=== PATIENT | male | born 1990 | race Caucasian/White ===

== ENCOUNTER 2019-07-04 18:33 | Emergency (ER) | payer BC, SELFPAY ==
[2019-07-04 18:36] VITALS: BP 136/81; PULSE 84; RESP 14; TEMP 37.2; O2SAT 97
--- NOTE | 2019-07-04 19:17 | ED.GENADUL_ITS ---
Discharge Plan Disposition Patient Disposition: HOME Condition: Stable Discharge Details Chief Complaint: Laceration Clinical Impression: Laceration Primary Care Provider: Ed Norman ED Provider: Amanda Reyes Home Meds and New Rx's Prescriptions: No Action No Known Home Meds RF: 0 Discharge Instructions Instructions: Laceration (ED) Additional Instructions: Keep initial dressing on for the next 24 to 48 hours then you may remove and begin your wound care. Wash gently with soap and water once or twice daily. Pat dry completely after washing and apply a small amount of antibiotic ointment to the wound. Keep dressed with Band-Aids or gauze. Observe for any signs of infection as discussed specifically redness, swelling, pain or drainage from the wound. Suture removal in the next 10-14 days. Return for any worsening, concerns or alarming symptoms sooner if needed Medical Decision Making 28-year-old patient presents to the emergency room for laceration to his right second digit which he sustained prior to arrival. Patient's tetanus is up-to-date. Patient has a linear laceration to the fat pad of the second digit. Nothing to indicate ligamentous injury. Distal neurovascularly intact with normal cap refill. Sensation preserved throughout the digit. Digital block for patient's comfort with 0.5% bupivacaine without epinephrine with 1% lidocaine, 4 cc used, patient tolerated without difficulty. Wound cleaned and extensively irrigated. 8 4-0 Prolene sutures. Wound edges well approximated. Patient tolerated procedure without any difficulty. Wound care discussed. Signs of infection discussed. Suture removal discussed. Patient agrees with plan of care. The patient was stable and requested d ischarge. Prior to discharge, my usual and customary return precautions were reviewed with the patient - this included follow-up instructions and reasons to return to the Emergency Department if conditions worsens, does not improve as expected, or other new concerns arise. HPI General Date/Time Provider Initiated Documentation: 07/04/19 18:55 . HPI Narrative: This is a 28-year-old patient presenting to the emergency room this evening for a right second finger laceration to the fat pad which was sustained approximately 1-1/2 hours prior to arrival. Patient was breaking ice off of an auger blade and the ice broke his finger accidentally caught the blade and lacerated the fat pad of his digit with his glove on. Patient's tetanus is up-to-date. Patient denies numbness, tingling or weakness. Full range of motion maintained of the finger. Patient has no concern of bony injury. Patient denies any other sites of pain or concerns. Bleeding controlled with pressure. Related Data Home Medications Medication Instructions Recorded Confirmed Unknown [No Known Home Meds] 07/04/19 07/04/19 Allergies Allergy/AdvReac Type Severity Reaction Status Date / Time No Known Allergies Allergy Unverified 07/04/19 18:44 General Stated Complaint: Laceration DHAVAL: 4 Review of Systems All systems reviewed & are unremarkable except as noted in HPI and below Musculoskeletal Musculoskeletal: Denies deformity, Denies limited range of motion, Denies numbness and Denies tingling Integumentary/Breasts Skin/Breast: Reports wounds Neurologic Neurologic: Denies numbness, Denies sensory deficit and Denies tingling PFSH Social History Smoking/Tobacco Use Status: Never Alcohol Intake: current Alcohol Intake frequency: a few times a month Drug use: Never Substance use type: does not use Do you feel safe at home: Yes Do you feel safe in your relationship?: Yes Exam Narrative Exam Narrative: CONST: Healthy appearing patient, in no acute distress. Well hydrated. Alert and oriented. MUSCULOSKELETAL: Normal Gait. FROM of all extremities. Right second digit with a laceration to the fat pad approximately 2 cm, linear. No bony pain with palpation. Flexion and extension intact, nothing to indicate tendon injury. Bleeding controlled with pressure. Sensation intact on the medial and lateral aspects of the digit distally. Cap refill normal SKIN: Normal. Dry. No rashes. Wound as described above NEURO: Alert and awake. Speech clear. PSYCH: Normal affect. Cooperative. Course Vital Signs Vital signs: Vital Signs Temperature 37.2 C 07/04/19 18:36 Pulse 84 07/04/19 18:36 Respiratory Rate 14 07/04/19 18:36 Blood Pressure 136/81 07/04/19 18:36 Pulse Oximetry 97 07/04/19 18:36 Temperature 37.2 C 07/04/19 18:36 Temperature Source Skin 07/04/19 18:36 Pulse 84 07/04/19 18:36 Respiratory Rate 14 07/04/19 18:36 Respiratory Effort 07/04/19 18:44 Blood Pressure 136/81 07/04/19 18:36 Blood Pressure Position Sitting 07/04/19 18:36 Pulse Oximetry 97 07/04/19 18:36 Oxygen Delivery Method Room Air 07/04/19 18:36 Oxygen Flow Rate 0 07/04/19 18:36 Pain Level 2 07/04/19 18:36 Procedures Laceration Laceration 1: Site: hand Side (If applicable): right Size (cm): 2 Description: linear Depth: simple, single layer Local Anesthetic: Bupivicaine 0.5% Amount of anesthesia used (mL): 4 Pre-repair: wound explored, irrigated extensively and deep structures intact Size (cm): 4-0 (prolene) Number of sutures: 8 Technique: simple, interrupted
[2019-07-04] MEDS: Povidone-Iodine Soln. 118 ML BTL (20:01)
[2019-07-04] MEDS: Bupivacaine 0.5% Pres-Free 30 ML VIAL (20:01)
== END 2019-07-04 20:40 | disposition home or self-care (01) ==
PROVIDERS: Emergency Provider Physician Assistant; PCP Physician Assistant
DX: S61.210A Laceration without foreign body of right index finger without damage to nail, initial encounter (principal); W26.8XXA Contact with other sharp object(s), not elsewhere classified, initial encounter
CPT/HCPCS: 12001

== ENCOUNTER 2022-05-30 12:37 | Emergency (ER) | payer BC, SELFPAY ==
[2022-05-30 12:41] VITALS: BP 132/67; PULSE 69; RESP 18; TEMP 36.9; O2SAT 98
--- OUTSIDE RECORDS SUMMARY | 2022-05-30 12:49 | XMS_ITS ---
:1990 Author Organization [facility] Address [address] [place] [address] Care Team Providers Name Role Phone Lazarus Norman Unavailable Unavailable PROBLEMS Unknown Problems ALLERGIES No Known Allergies ENCOUNTERS Encounter Location Date Diagnosis [address], [place] [address], [place], [place], [place] [address] R53.83 ; Dysuria R30.0 ; Periumbilical ab dominal pain R10.33 and Acute bacterial prosta titis N41.[address] [place], [place] [address], [place], [place] R30.0 ; [place] [address] -Immunization Z2 3 and Benign essential microscopic felix turia R31.[address], [place] [address], [place] [address] distal pole of n avicular [scaphoid] bone of right wrist, initial e ncounter for closed fract ure S62.014A and Non displaced fracture of midd le third of navicular [scaph oid] bone of right wrist, initial encounter for cl osed fracture S62.[address], [place] [address], [place] [address], [place], [place] [address] distal radius S5 2.501A ; Nondisplaced fra cture of middle third of navicular [scaphoid] bone of right wrist, initial e ncounter for closed fract ure S62.024A ; -Immu nization Z23 and Nondispl aced fracture of dist al pole of navicular [scaph oid] bone of right wrist, initial encounter for cl osed fracture S62.[address], [place] [address] middle third of navicular [scaphoid] bone of right wrist, initial e ncounter for closed fract ure S62.024A ; Nondi splaced fracture of dist al pole of navicular [scaph oid] bone of right wrist, initial encounter for cl osed fracture S62.014 A and Closed fracture of right distal radius S5 2.501A [address], [place] [address], [place], [place] [address] distal radius S5 2.501A [address], [place], [place] [address] distal radius S5 2.501A [address], [place], [place] [address] middle third of navicular [scaphoid] bone of right wrist, initial e ncounter for closed fract ure S62.024A and Yvonne sed fracture of righ t distal radius S52.501A [address], [place], [place] [address] distal radius S5 2.501A ; -Concussion with out loss of consciousness S0 6.0X0D ; Nondisplaced fra cture of distal pole of n avicular [scaphoid] bone of right wrist, initial e ncounter for closed fract ure S62.014A and Non displaced fracture of midd le third of navicular [scaph oid] bone of right wrist, initial encounter for cl osed fracture S62.024 A IMMUNIZATIONS Vaccine Route Administration Date Status Pfizer SARS-CoV2 Bivalent Booster IM Intramuscular May 24, 2022 Administered INFLUENZA ADULT SINGLE DOSE IM Intramuscular May 24, 2022 Adm inistered INFLUENZA ADULT SINGLE DOSE IM Intramuscular Mar 10, 2019 Adm inistered TD ADULT IM Intramuscular Mar 10, 2019 Administered SOCIAL HISTORY Qualifiers Date REASON FOR REFERRAL FUNCTIONAL STATUS PLAN OF CARE Activity Details Follow Up 1 week ABP Urine CX Reason: Pending Test BACTERIAL CULTURE, URINE, RO UTINE - QUEST VITAL SIGNS Temperature 98.1 degrees Fahrenheit 2022-05-24 Weight 157 lbs 2022-05-28 Weight 162 lbs 2022-05-24 Weight 160 lbs 2019-05-07 Weight 158 lbs 2019-03-10 Weight 155 lbs 2019-01-21 Weight 156.4 lbs 2018-12-22 Height 68 in 2022-05-28 BMI 23.87 kg/m2 2022-05-28 Oximetry 96 % 2022-05-24 Blood pressure systolic 124 mm Hg 2022-05-28 Blood pressure diastolic 80 mm Hg 2022-05-28 MEDICATIONS Medication Instructions Dosage Frequency Start End Date Duration Stat us Date BACTRIM DS Orally every 12 1 tablet 12h 24 May, day(s) Ac tive 800-160 MG hrs 2022 2022 PROCEDURES Procedure Date Ordered Result Body Site ZDME: WRIST SPLINT 2018-12-22 N/A ZDME: THUMB SPICA WRIST SPLINT 2019-03-10 N/A COMPREHEN METABOLIC PANEL QW May 28, 2022 INFLUENZA ADULT SINGLE DOSE May 24, 2022 VENIPUNCT, ROUTINE* May 28, 2022 APPLY HAND/WRIST CAST Dec 22, 2018 [place] ADULT FIBERGLASS Dec 22, 2018 URINE-NO MICRO May 24, 2022 URINE-NO MICRO May 24, 2022 Pfizer SARS-CoV2 Bivalent Booster May 24, 2022 TD Mar 10, 2019 URINE-NO MICRO May 24, 2022 IMMUNIZATION ADMIN Mar 10, 2019 [place] ADULT FIBERGLASS Jan 21, 2019 IMMUNIZATION ADMIN May 24, 2022 WRIST SPLINT Dec 22, 2018 WRIST SPLINT THUMB SPICA Mar 10, 2019 URINE-NO MICRO May 28, 2022 INFLUENZA ADULT SINGLE DOSE Mar 10, 2019 APPLY HAND/WRIST CAST Jan 21, 2019 ADM SARSCOV2 30MCG/0.3ML BIVALENT BOOSTER May 24, 2022 RESULTS Name Result Date Reference Range C REACTIVE PROTEIN 2022-05-28 C-REACTIVE PROTEIN 20.0 <10.0 Urinalysis, routine (In-house Only) 2022-05-28 Urine-Color light yellow Leuk Esterase 3+ Nitrite, Urine + Urobilinogen,Semi-Qn neg Protein +- pH 7.5 Occult Blood 3+ Specific [place] 1.005 Ketones neg Bilirubin neg Glucose neg Appearance cloudy Microscopic Examination Microscopic Examination Urinalysis Gross Exam COMPREHENSIVE METABOLIC PANEL 2022-05-28 Sodium 143 128 - 145 Potassium 3.9 3.6 - 5.1 CO2 32 18 - 33 Chloride 101 98 - 108 Glucose, Serum 98 73 - 118 Calcium 9.9 8.0 - 10.3 BUN 11 7 - 22 Creatinine 1.1 0.6 - 1.2 Alkaline Phosphatase 63 38 - 150 ALT 9* 10 - 47 AST 19 Total Bilirubin USE NBIL 0.7 0.2 - 1 .6 Albumin 4.2 3.3 - 5.5 Total Protein 7.6 6.4 - 8.1 GFR, calculated >60 ALBUMIN/GLOBULIN RATIO Fasting? no TOTAL BILIRUBIN Anion Gap BLOOD UREA NITROGEN HN ANION GAP A/G Ratio Calculated Calcium BLOOD UREA NITROGEN GLUCOSE UREA NITROGEN (BUN) CREATININE eGFR NON-AFR. GU[place]EMALAN eGFR BUN/CREATININE RATIO GLOBULIN EGFR PSA, Diagnostic 2022-05-28 PROSTATE SPECIFIC ANTIGEN 12.7 <=2.5 D-DIMER 2022-05-28 D-DIMER QUANTITATIVE <150 <=230 HEMAGRAM & DIFF 2022-05-28 WHITE BLOOD CELL COUNT (WBC) 12.37 4.0 0-10.40 RED BLOOD CELL COUNT (RBC) 4.87 4.36- 5.78 HEMOGLOBIN (HGB) 13.7 13.8-17.3 HEMATOCRIT (HCT) 41.6 39.5-50.2 MEAN CORPUSCULAR VOLUME (MCV) 85 81 -95 MEAN CORPUSCULAR HEMOGLOBIN (MCH) 28.1 27.6-33.0 MEAN CORPUSCULAR HEMOGLOBIN CONC (MCHC) 32.9 32.8-36.4 RDW-CV 12.9 <14.2 RDW-SD 39.8 <46.0 PLATELET COUNT (PLTC) 285 141-377 MEAN PLATELET VOLUME (MPV) 10.3 9.5-1 2.7 LYMPHOCYTES RELATIVE PERCENT (ALYMP) 14.8 MONOCYTES RELATIVE BY AUTOMATED COUNT (AMONO) 8.7 EOSINOPHILS RELATIVE BY AUTOMATED COUNT 3.0 BASOPHILS RELATIVE PERCENT BY AUTOMATED COUNT 0.6 MONOCYTES ABSOLUTE BY AUTOMATED COUNT 1.08 0.10-0.80 EOSINOPHILS ABSOLUTE COUNT (AAEOS) 0.37 0.03-0.61 BASOPHILS ABSOLUTE COUNT BY AUTO COUNT (ABAS) 0.07 0.01-0.11 Urinalysis, routine (In-house Only) 2022-05-24 Urine-Color light yellow Leuk Esterase neg Nitrite, Urine neg Urobilinogen,Semi-Qn neg Protein neg pH 7.0 Occult Blood 2+ Specific [place] 1.005 Ketones neg Bilirubin neg Glucose neg Appearance clear Microscopic Examination Microscopic Examination Urinalysis Gross Exam CHLAMYDIA/GC AMPLIFIED RNA, URINE 2022-05-24 CHLAMYDIA TRACHOMATIS RNA, TMA, UROGENITAL NOT DETECTED NOT DETECTED NEISSERIA GONORRHOEAE RNA, TMA, UROGENITAL NOT DETECTED NOT DETECTED COMMENT CT Scan : [facility] Wrist 3 or more Views 2019-01-20 [facility] : Wrist 3 or more Views 2019-01-07 X [facility] : Wrist 3 or more Views 2018-12-30 [facility] : Wrist 3 or more Views 2018-12-22 REASON FOR VISIT Follow Up, ongoing urinary symptoms, URI symptoms (negative covid test), ongoing sx, pain & discomfort before/after urination /ss, pain & discomfort before/after urination /ss, pain & discomfort before/after urination, COVID-19 - needs to be tested?, RIGHT wrist f/u-dl, Speak w/ MS, Work letter , f/u wrist , f/u wrist-dl, Influenza Vaccine, f/u wrist after repeat x-ray-dl, due for repeat x-ray and OV, NEW SYMPTOMS, repeat XR, concussion, CALL OUT CLERK concussion/fracture-dl Insurance Providers [facility] Patient Patient Patient Patient Patient Subscriber Subscriber Subscriber Group Insurance Plan Plan Plan Plan ID Relationship Address Phone Name Date of ID Name Date of No Type Insurance Insurance Insurance Coverage to Subscriber Address Phone Name Dates Jaya Uribe [phone] Jaya Cross self Peter [id number] [place] [address] [place] [id number] [place] [address]
--- NOTE | 2022-05-30 13:13 | ED.GENADUL_ITS ---
Discharge Plan Disposition Patient Disposition: Home Condition: Improving Discharge Details Clinical Impression: Alteration in vision, Paresthesia Primary Care Provider: Ed Norman ED Provider: Alo Herrmann Home Meds and New Rx's Prescriptions: No Action No Known Home Meds Discharge Instructions Instructions: Paresthesia (ED), Blurred Vision (ED) Additional Instructions: Please continue to monitor your symptoms and if they return or you have any significant worsening of your symptoms especially if these are persistent return immediately to the emergency department for reassessment. Otherwise follow-up with your primary care provider as previously scheduled for continued monitoring and care of your prostatitis. At this time I do not feel that this was a medication reaction but continue to monitor for further reactions after you take additional doses of your antibiotic. Referrals: Ed Norman [Primary Care Provider] - (As needed for reassessment) Discharge Data Discharge Date/Time-TO BE ENTERED AT DEPARTURE: 05/30/22 15:27 Medical Decision Making Patient presenting to the emergency department for chief complaint of double vision and facial numbness. This happened approximately 1 hour prior to arrival with symptoms starting to resolve. Patient recently was diagnosed with prostatitis and has been started on Bactrim which today he took his third dose approximately 3 hours prior to any of the symptoms that occurred. Patient now only states mild palatine numbness otherwise is asymptomatic. Cranial nerve exam is unremarkable, visual beltrán intact, exam is otherwise intact with no focal findings, normal gait. We will plan on checking labs and a CTA imaging. While patient is at extremely low risk for CVA this is considered, also consideration given patient's occupation would be Lyme or tickborne illness, electrolyte abnormality, TIA. Significant other did state that patient had dry cough yesterday evening so we will also check COVID status but I would feel this would be extremely atypical for presentation. Given that patient symptoms are resolving independent of any treatments we will just continue to monitor at this time. Review of labs show mild leukocytosis with noted elevation of neutrophils and monocytes but I feel this is all secondary to prostatitis. CMP is completely and unremarkable. UA unremarkable. Patient negative for COVID. CT imaging unremarkable for emergent findings. Patient continued to have full resolution of symptoms. Patient still pending tickborne panel but will discharge with close monitoring along with return and follow-up precautions. After discussion of diagnosis and plan of care patient has no further needs, questions, or concerns and states clear understanding to return to the emergency department for any worsening symptoms. This documentation was generated using [employer] dictation system, please disregard any oddities of phrase or misspellings. Imaging Data Radiologic Study: Attestation: I personally reviewed and interpreted this imaging study as follows: Imaging: CT Scan Radiologist's impression: Exam(s) CT BRAIN NECK CTA EXAM: CT BRAIN NECK CTA CLINICAL HISTORY: Facial numbness, blurry vision. TECHNIQUE: Imaging Protocol: Axial CT angiography was performed with multi- slice acquisition and multi-planar and 3D reconstructions. CONTRAST MATERIAL: Intravenous: Omnipaque 350 Contrast volume: 100 cc COMPARISON: No exams were available for comparison FINDINGS: CT Head W/O and W contrast: Ventricles and Extra axial spaces: Normal in size and morphology for the patient's age. Hemorrhage: None. Cerebral parenchyma: Normal. Midline shift: None. Brainstem/Cerebellum: Normal. Calvarium: Normal. Visualized Paranasal sinuses/Mastoids: Clear. Soft Tissues: Unremarkable. Enhancement: Normal. CTA Brain W: Internal Carotid Arteries: Petrous: Normal. Cavernous: Normal. Cerebral: Normal. Middle Cerebral Arteries: Right: No aneurysm, occlusion or significant stenosis. Left: No aneurysm, occlusion or significant stenosis. Anterior Cerebral Arteries: Right: No aneurysm, occlusion or significant stenosis. Left: No aneurysm, occlusion or significant stenosis. Posterior cerebral Arteries: Right: No aneurysm, occlusion or significant stenosis. Left: No aneurysm, occlusion or significant stenosis. Vertebral Arteries: Right: No aneurysm, occlusion or significant stenosis. Left: No aneurysm, occlusion or significant stenosis. Basilar Artery: No aneurysm, occlusion or significant stenosis. CTA Neck W: Common Carotid: Right: No aneurysm, occlusion or significant stenosis. Left: No aneurysm, occlusion or significant stenosis. External Carotid: Right: No aneurysm, occlusion or significant stenosis. Left: No aneurysm, occlusion or significant stenosis. Internal Carotid: Right: No aneurysm, occlusion or significant stenosis. Left: No aneurysm, occlusion or significant stenosis. Vertebral Artery: Right: No aneurysm, occlusion or significant stenosis. Left: No aneurysm, occlusion or significant stenosis. Lung Apices: Normal. Bones: Normal. Soft Tissues: Normal. IMPRESSION: 1. Normal CTA examination of the [place] of [place]. 2. Unremarkable CT Head. 3. Normal CTA examination of the neck. Lab Data Lab results reviewed: Yes I reviewed the patient's lab results. HPI General Mode of arrival: ambulatory . Date/Time Provider Initiated Documentation: 05/30/22 12:38 . Limitations to Documentation: no limitations . Information obtained by: patient, family and RN notes reviewed . History of Present Illness 31 year old M presents to the emergency department with the chief complaint of Change in vision, Quality is described as other (Denies pain or discomfort), Patient started experiencing this hour(s) (2) and it has been now resolved. No relieving factors improve symptom(s), No exacerbating factors reported . Patient notes no other symptoms.. Patient did receive the following treatments prior to arrival, none Related Data Home Medications Medication Instructions Recorded Confirmed Unknown [No Known Home Meds] 07/04/19 07/04/19 Allergies Allergy/AdvReac Type Severity Reaction Status Date / Time No Known Allergies Allergy Unverified 07/04/19 18:44 General Stated Complaint: GenMedical DHAVAL: 3 Review of Systems Constitutional Constitutional: Reports chills, Reports fever(s) and Reports headache(s) Eyes Eyes: Reports blurry vision ENT Ears, Nose, Mouth, and Throat: Denies facial pain and Reports headache(s) Cardiovascular Cardiovascular: Denies chest pain and Denies dyspnea Respiratory Respiratory: Reports cough and Denies dyspnea Musculoskeletal Musculoskeletal: Reports numbness Neurologic Neurologic: Reports headache(s) and Reports numbness PFSH All Active Problems (Updated 05/30/22 @ 15:23 by Alo Herrmann NP) Alteration in vision (Acute) Paresthesia (Acute) Social History Smoking/Tobacco Use Status: Never Smoking risk assessment performed?: Yes Alcohol Intake: current Alcohol Intake frequency: a few times a month Drug use: Never Substance use type: does not use Do you feel safe at home: Yes Do you feel safe in your relationship?: Yes Exam Const General: cooperative, healthy appearing, no acute distress and well groomed Orientation: alert, awake and oriented x3 HENMT Head: normal to inspection Ears: hearing grossly normal bilaterally and TM's normal bilaterally Mouth: oral mucosae normal and moist mucous membranes Throat: posterior oropharynx normal Eyes Visual Beltrán: normal visual beltrán by confrontation Alignment and Position: alignment normal Periorbital: periorbital findings normal Eyelids: eyelids normal Conjunctivae: conjunctivae normal Sclera: sclerae normal Cornea: corneas normal Pupils: PERRL EOM: EOM intact bilaterally Neck Neck: normal visual inspection, full ROM and no meningeal signs Resp Effort & Inspection: normal respiratory effort and able to speak in complete sentences Auscultation: clear to auscultation bilaterally Cardio Rate: regular rate Rhythm: regular rhythm Heart Sounds: S1 normal and S2 normal Neuro General: patient alert, patient awake, patient oriented x3, gait normal, tone normal, moves all extremities, CN's II-XI intact bilaterally and not confused Cognition: normal cognition Speech: speech normal Motor: muscle tone normal throughout, strength 5/5 throughout, no pronator drift, no movement abnormalities noted and no fasciculations Sensory Exam: no sensory deficits noted Coordination: Does not sway with eyes open, rapid alternating movement UE normal and rapid alternating movement LE normal Course Vital Signs Vital signs: Vital Signs Temperature 36.9 C 05/30/22 12:41 Pulse 69 05/30/22 12:41 Respiratory Rate 18 05/30/22 12:41 Blood Pressure 132/67 05/30/22 12:41 Pulse Oximetry 98 05/30/22 12:41 Temperature 36.9 C 05/30/22 12:41 Temperature Source Tympanic 05/30/22 12:41 Pulse 69 05/30/22 12:41 Respiratory Rate 18 05/30/22 12:41 Respiratory Effort 05/30/22 12:49 Respiratory Depth Normal 05/30/22 12:49 Respiratory Pattern Normal 05/30/22 12:49 Blood Pressure 132/67 05/30/22 12:41 Blood Pressure Position Supine 05/30/22 12:41 Pulse Oximetry 98 05/30/22 12:41 Oxygen Delivery Method Room Air 05/30/22 12:41 Oxygen Flow Rate 0 05/30/22 12:41 Pain Level 2 05/30/22 12:41 PAWSS Have you Been Recently Intoxicated or Drunk Within the Last 30 days?: No Have you Ever Experienced Previous Episodes of Alcohol Withdrawal?: No Have you ever Experienced Withdrawal Seizures?: No Have you ever Experienced Delirium Tremens(DT)s?: No Have you ever undergone Alcohol Rehabilitation Treatment (i.e, inpt ot outpatient treatment programs)?: No Have you ever Experienced Blackouts?: No Have you ever Combined Alcohol with other Downers within the last 90 days?: No Have you ever Combined Alcohol with any other Substance of Abuse during the last 90 days?: No Positive Blood Alcohol level on Presentation? [PCS.BAL]: No Evidence of Increased Autonomic Activity (i.e. HR>120, tremor, sweating, agitation, nausea)?: No Result: 0
--- NOTE | 2022-05-30 13:15 | DI.CT_ITS ---
Exam(s) CT BRAIN NECK CTA EXAM: CT BRAIN NECK CTA CLINICAL HISTORY: Facial numbness, blurry vision. TECHNIQUE: Imaging Protocol: Axial CT angiography was performed with multi-slice acquisition and mu lti-planar and 3D reconstructions. CONTRAST MATERIAL: Intravenous: Omnipaque 350 Contrast volume: 100 cc COMPARISON: No exams were available for comparison FINDINGS: CT Head W/O and W contrast: Ventricles and Extra axial spaces: Normal in size and morphology for the patient's age. Hemorrhage: None. Cerebral parenchyma: Normal. Midline shift: None. Brainstem/Cerebellum: Normal. Calvarium: Normal. Visualized Paranasal sinuses/Mastoids: Clear. Soft Tissues: Unremarkable. Enhancement: Normal. CTA Brain W: Internal Carotid Arteries: Petrous: Normal. Cavernous: Normal. Cerebral: Normal. Middle Cerebral Arteries: Right: No aneurysm, occlusion or significant stenosis. Left: No aneurysm, occlusion or significant stenosis. Anterior Cerebral Arteries: Right: No aneurysm, occlusion or significant stenosis. Left: No aneurysm, occlusion or significant stenosis. Posterior cerebral Arteries: Right: No aneurysm, occlusion or significant stenosis. Left: No aneurysm, occlusion or significant stenosis. Vertebral Arteries: Right: No aneurysm, occlusion or significant stenosis. Left: No aneurysm, occlusion or significant stenosis. Basilar Artery: No aneurysm, occlusion or significant stenosis. CTA Neck W: Common Carotid: Right: No aneurysm, occlusion or significant stenosis. Left: No aneurysm, occlusion or significant stenosis. External Carotid: Right: No aneurysm, occlusion or significant stenosis. Left: No aneurysm, occlusion or significant stenosis. Internal Carotid: Right: No aneurysm, occlusion or significant stenosis. Left: No aneurysm, occlusion or significant stenosis. Vertebral Artery: Right: No aneurysm, occlusion or significant stenosis. Left: No aneurysm, occlusion or significant stenosis. Lung Apices: Normal. Bones: Normal. Soft Tissues: Normal. IMPRESSION: 1. Normal CTA examination of the [place]. 2. Unremarkable CT Head. 3. Normal CTA examination of the neck. RADIATION DOSE DELIVERED: 1,990.75mGy.cm Total DLP DATA REPOSITORY: All CT scans at this facility are submitted to the National Radiology Data Registry (NRDR) Dose Index Registry (DIR) with the [employer] ([employer]). RADIATION OPTIMIZATION: All CT scans at this facility use at least one of these dose optimization te chniques: automated exposure control; mA and/or kV adjustment per patient size (includes targeted exa ms where dose is matched to clinical indication); or iterative reconstruction.
[2022-05-30 13:24] LABS: Source Nasal/Nares
[2022-05-30 13:43] LABS: Abs Immature Grans 0.09 10^3/uL (0.0-0.06); Absolute Basophil Count 0.07 10^3/uL (0.0-0.2); Absolute Eosinophil Count 0.31 10^3/uL (0.0-0.7); Absolute Lymphocyte Count 1.58 10^3/uL (1.2-3.4); Basophils % 0.6; Eosinophils % 2.8; HCT 41.2 % (40.0-50.0); HGB 13.5 g/dL (13.5-17.5); Immature Grans % 0.8; Lymphocytes % 14.4; MCH 27.6 pg (27.0-33.0); MCHC 32.8 % (32.0-36.0); MCV 84 fL (80-95); MPV 10.1 fL (8.0-11.0); Monocytes % 7.7; Neutrophils % 73.7; Platelet Count 286 10^3/uL (130-400); RDW 12.6 % (11.8-14.1); RDW-SD 38.3 fL; WBC 10.97 10^3/uL (4.4-10.8)
[2022-05-30 13:46] LABS: Absolute Monocyte Count 0.84 10^3/uL (0.1-0.8); Absolute Neutrophil Count 8.08 10^3/uL (1.2-6.7)
[2022-05-30] MEDS: Omnipaque 350 MG/ML 100 ML BTL IJ (13:52)
[2022-05-30] MEDS: Normal Saline Flush 10 ML SYR IVP (13:54)
[2022-05-30 13:55] LABS: COVID-19 PCR Negative (Negative)
[2022-05-30 13:58] LABS: ALT 14 U/L (16-63); AST 16 U/L (15-37); Albumin 4.4 g/dL (3.4-5.0); Alkaline Phosphatase 68 U/L (46-116); Anion Gap 5.6 mmol/L (3-11); BUN 8 mg/dL (7-18); Bilirubin, Total 0.5 mg/dL (0.2-1.0); CO2 31.4 mmol/L (21.0-32.0); CREATININE 0.9 mg/dL (0.70-1.30); Calcium 9.2 mg/dL (8.5-10.1); Chloride 103 mmol/L (98-107); Glucose 96 mg/dL (74-106); Sodium 140 mmol/L (136-145); Total Protein 7.6 g/dL (6.4-8.2)
[2022-05-30 15:26] LABS: Bilirubin Negative (Negative); Blood Negative (Negative); Clarity Clear (Clear); Glucose Negative (Negative); Ketones Negative (Negative); Leukocyte Esterase Negative (Negative); Nitrite Negative (Negative); Urobilinogen 0.2 EU/dL (Up TO 0.2)
[2022-05-30 15:31] VITALS: BP 121/72; PULSE 51; TEMP 36.7; O2SAT 99
[2022-05-30 15:33] VITALS: BP 121/72; PULSE 51; TEMP 36.7; O2SAT 99
[2022-05-31 10:40] LABS: Lyme Ab w Rflx to Lyme Confirm Negative (Negative)
[2022-06-02 17:54] LABS: Anaplasma phagocytophilum Negative (Negative); B. miyamotoi PCR Negative (Negative); Babesia divergens/MO-1 Negative (Negative); Babesia duncani Negative (Negative); Babesia microti Negative (Negative); Ehrlichia chaffeensis Negative (Negative); Ehrlichia ewingii/canis Negative (Negative); Ehrlichia muris eauclairensis Negative (Negative)
== END 2022-05-30 15:27 | disposition home or self-care (01) ==
PROVIDERS: Emergency Provider Nurse Practitioner Family; PCP Physician Assistant
DX: H53.2 Diplopia (principal); R20.2 Paresthesia of skin; D72.829 Elevated white blood cell count, unspecified; Z20.822 Contact with and (suspected) exposure to COVID-19
CPT/HCPCS: 36415; 70496; 70498; 80053; 87635; 87798; 99285; 81003; 85025; 86618; 99284; J3490